=== PATIENT | female | born 1970 | race African-American/Black ===

== ENCOUNTER 2017-06-08 22:22 | Emergency (ER) | payer OTHER ==
[~2017-06-08] VITALS: Ht 162.6 cm; Wt 94.8 kg
[~2017-06-08 22:22] MED LIST: CLON0.1T PO; HYDR25TA4 PO; MONT10TA22 PO
[2017-06-08] MEDS ORDERED: KETOROLAC TROMETHAMINE INJ 30 MG/ML VIAL IV ONE (23:00)
--- NOTE | 2017-06-08 23:11 | NUR ---
pt c/o chest pain 8/10 for few days, radiating to the L jaw, SOB on exertion, SBP 200, sat 100% on MD NU at the bedside.
[2017-06-08] MEDS ORDERED: hydrALAZINE HCL IV 20 MG VIAL ONE (23:26)
[2017-06-08] MEDS ORDERED: KETOROLAC TROMETHAMINE INJ 30 MG/ML VIAL ONE (23:27)
[2017-06-08] MEDS ORDERED: hydrALAZINE HCL IV 20 MG VIAL IV ONE (23:30)
[2017-06-08 23:41] LABS: BASOPHILS # (AUTO) 0.1 /CMM (0.0-0.2); BASOPHILS % (AUTO) 0.7 % (0.0-2.0); EOSINOPHILS # (AUTO) 0.5 /CMM (0.0-0.7); HEMATOCRIT 34 % (33-45); HEMOGLOBIN 10.9 g/dL (11.5-14.8); LYMPHOCYTES % (AUTO) 37.9 % (20.0-44.0); MEAN CORPUSCULAR HEMOGLOBIN 23 PG (26.0-33.0); MEAN CORPUSCULAR HGB CONC 32 g/dl (31.0-36.0); MEAN CORPUSCULAR VOLUME 72 fL (82-100); MONOCYTES # (AUTO) 0.4 /CMM (0.1-1.30); MONOCYTES % (AUTO) 4.5 % (2.0-12.0); NEUTROPHILS % (AUTO) 50.9 % (43.0-81.0); PLATELET COUNT (AUTO) 372 /CMM (150-450); RDW COEFFICIENT OF VARIATION 32.2 (11.5-15.0); TROPONIN I < 0.017 ng/mL (0.00-0.056); WHITE BLOOD COUNT (AUTO) 7.9 K/uL (4.3-11.0)
[2017-06-08 23:54] LABS: CALCIUM, SERUM 9.6 mg/dL (8.5-10.1); CARBON DIOXIDE 28 mmol/L (21-32); CHLORIDE 100 mmol/L (98-107); CREATININE 0.8 mg/dL (0.6-1.3); GLUCOSE 119 mg/dL (74-106); POTASSIUM 3.4 mmol/L (3.5-5.1); SODIUM SERUM 136 mmol/L (136-145); UREA NITROGEN, BLOOD 12 mg/dL (7-18)
[2017-06-09 00:04] LABS: INR 0.93 (0.87-1.13); PROTHROMBIN TIME 9.7 SECS (9.5-12.7)
--- NOTE | 2017-06-09 00:06 | NUR ---
pt is resting in the bed, chest pain 2/10, sat well, SBP 135.
[2017-06-09 00:08] LABS: D-DIMER 3.68 mg/L(FEU (0.17-0.50)
[2017-06-09] MEDS ORDERED: IOHEXOL-350 100 ML VIAL IV ONE (00:35)
[2017-06-09] MEDS ORDERED: CT SWABBABLE VALVE TRANS SET 1 EA INFUS.SET MC ONE (00:35)
[2017-06-09] MEDS ORDERED: IV NS 0.9% 250 ML IV ONE (00:36)
[2017-06-09 01:54] VITALS: BP 141/76
--- NOTE | 2017-06-09 01:55 | NUR ---
Patient ambulatory w/ steady gait w/ resp even & unlabored, nad noted. IV removed. Catheter intact and site benign. Pressure and 4x4 applied to site. No bleeding noted.Patient discharged to home in stable condition. Written and verbal after care instructions given. Patient verbalizes understanding of instruction.
== END 2017-06-09 01:55 | disposition home or self-care (01) ==
LOC: ER 22:25
DX: R07.89 Other chest pain (principal); I10 Essential (primary) hypertension; Z88.0 Allergy status to penicillin; Z88.8 Allergy status to other drugs, medicaments and biological substances
CPT/HCPCS: 36415; 71010; 71275; 80048; 84484; 85025; 85378; 85730; 93005; 96374; 96375; 99285; A4606; J0360; J1885; J7050; Q9967; Z7610

== ENCOUNTER 2018-06-06 12:19 | Emergency (ER) | payer OTHER ==
[~2018-06-06] VITALS: Ht 162.6 cm; Wt 99.8 kg
[2018-06-06 13:00] LABS: BASOPHILS # (AUTO) 0.1 /CMM (0.0-0.2); BASOPHILS % (AUTO) 0.9 % (0.0-2.0); EOSINOPHILS % (AUTO) 11.5 % (0.0-6.0); HEMATOCRIT 23 % (33-45); HEMOGLOBIN 7.4 g/dL (11.5-14.8); LYMPHOCYTES # (AUTO) 1.5 /CMM (0.8-4.8); LYMPHOCYTES % (AUTO) 25.9 % (20.0-44.0); MEAN CORPUSCULAR HGB CONC 32 g/dl (31.0-36.0); MEAN CORPUSCULAR VOLUME 83 fL (82-100); MONOCYTES # (AUTO) 0.3 /CMM (0.1-1.30); NEUTROPHILS # (AUTO) 3.2 /CMM (1.8-8.9); NEUTROPHILS % (AUTO) 56.7 % (43.0-81.0); PLATELET COUNT (AUTO) 328 /CMM (150-450); RED BLOOD CELL COUNT(AUTO) 2.77 MIL/uL (4.0-5.2); WHITE BLOOD COUNT (AUTO) 5.7 K/uL (4.3-11.0)
--- NOTE | 2018-06-06 13:01 | NUR ---
PT BIB SELF, SENT BY OBGYN FOR LOW HGB 5.4, PT STATES THAT SHE HAD VAGINAL BLEED FROM APR 25 UNTIL JUN 04, 2018, DENIES VB X 2 DAYS. ALERT AND ORIENTED X 4, VERBALLY RESPONSIVE, AND ABLE TO MAKE NEEDS KNOWN. ON ROOM AIR, 02 SAT 97^%, BREATHING EVENLY, AND UNLABORED. DENIES ANY PAIN AT THIS TIME. KEPT COMFORTABLE. WILL CONTINUE TO MONITOR ACCORDINGLY.
[2018-06-06 13:14] LABS: CREATININE 0.8 mg/dL (0.6-1.3)
[2018-06-06 13:15] LABS: POTASSIUM 2.7 mmol/L (3.5-5.1)
[2018-06-06] MEDS ORDERED: POTASSIUM CHLORIDE 20 MEQ TAB.PRT.SR PO ONE ×2 (13:21→13:30)
[2018-06-06 13:24] LABS: ALBUMIN 3.6 g/dL (3.4-5.0); BILIRUBIN,TOTAL 0.2 mg/dL (0.2-1.0); TOTAL PROTEIN, SERUM 7.3 g/dL (6.4-8.2)
[2018-06-06 13:29] VITALS: BP 134/78
--- NOTE | 2018-06-06 13:30 | NUR ---
Patient discharged to home in stable condition. Written and verbal after care instructions given. Patient verbalizes understanding of instruction.
== END 2018-06-06 13:29 | disposition home or self-care (01) ==
LOC: ER 12:24
DX: D64.9 Anemia, unspecified (principal); N92.0 Excessive and frequent menstruation with regular cycle; D25.9 Leiomyoma of uterus, unspecified; E87.6 Hypokalemia; I10 Essential (primary) hypertension; Z98.890 Other specified postprocedural states; Z88.0 Allergy status to penicillin; Z88.8 Allergy status to other drugs, medicaments and biological substances
CPT/HCPCS: 36415; 80048-TC; 80076-TC; 85025-TC; 85730-TC; 86850-TC; A4606; Z7610

== ENCOUNTER 2018-08-26 06:39 | Emergency (ER) | payer OTHER ==
[~2018-08-26] VITALS: Ht 162.6 cm; Wt 96.2 kg
--- NOTE | 2018-08-26 06:57 | NUR ---
PT BIBS. C/O "WAS PULLING STUFF OUT OF A BIN, SHOULDER STARTED HURTING AND ITS WORSE IN THE MORNINGS" -SOB. -N/V -ACUTE DISTRESS. AOX4. AMBULATORY W.STEADY GAIT.
[2018-08-26] MEDS ORDERED: DIAZEPAM 10 MG TABLET PO ONE (07:00)
[2018-08-26] MEDS ORDERED: IBUPROFEN 400 MG TABLET PO ONE (07:00)
[2018-08-26] MEDS ORDERED: DIAZEPAM 5 MG TABLET ONE (07:06)
[2018-08-26] MEDS ORDERED: IBUPROFEN 400 MG TABLET ONE ×2 (07:06→07:11)
[2018-08-26 07:22] LABS: BASOPHILS % (AUTO) 0.5 % (0.0-2.0); EOSINOPHILS % (AUTO) 6.2 % (0.0-6.0); HEMATOCRIT 36 % (33-45); HEMOGLOBIN 11.6 g/dL (11.5-14.8); LYMPHOCYTES # (AUTO) 2.3 /CMM (0.8-4.8); LYMPHOCYTES % (AUTO) 34.2 % (20.0-44.0); MEAN CORPUSCULAR HGB CONC 32 g/dl (31.0-36.0); MEAN CORPUSCULAR VOLUME 77 fL (82-100); MONOCYTES # (AUTO) 0.4 /CMM (0.1-1.30); MONOCYTES % (AUTO) 6.1 % (2.0-12.0); NEUTROPHILS # (AUTO) 3.6 /CMM (1.8-8.9); PLATELET COUNT (AUTO) 250 /CMM (150-450); RED BLOOD CELL COUNT(AUTO) 4.71 MIL/uL (4.0-5.2); WHITE BLOOD COUNT (AUTO) 6.7 K/uL (4.3-11.0)
[2018-08-26 07:32] LABS: CALCIUM, SERUM 9.4 mg/dL (8.5-10.1); CREATININE 0.7 mg/dL (0.6-1.3); POTASSIUM 3.4 mmol/L (3.5-5.1)
--- NOTE | 2018-08-26 07:35 | NUR ---
ASSESSED PT ON BED, AAOX4, NOT IN RESPIRATORY DISTRESS, KEPT RESTED AND COMFORTABLE, WILL CONTINUE TO MONITOR.
--- NOTE | 2018-08-26 07:51 | NUR ---
SUPERVISOR STRIPPING AT BEDSIDE FOR XRAY.
[2018-08-26] MEDS ORDERED: POTASSIUM CHLORIDE 20 MEQ TAB.PRT.SR PO ONE ×2 (07:59→08:00)
--- NOTE | 2018-08-26 08:15 | NUR ---
SHOULDER IMMOBILIZER APPLIED BY SHORTHAND TEACHER.
[2018-08-26 08:27] VITALS: BP 155/90
--- NOTE | 2018-08-26 08:27 | NUR ---
Patient discharged to home in stable condition. Written and verbal after care instructions given. Patient verbalizes understanding of instruction.
== END 2018-08-26 08:29 | disposition home or self-care (01) ==
LOC: ER 06:47
DX: M25.511 Pain in right shoulder (principal); M62.838 Other muscle spasm; I10 Essential (primary) hypertension; Z98.890 Other specified postprocedural states; Z88.8 Allergy status to other drugs, medicaments and biological substances; Z88.0 Allergy status to penicillin; Z79.899 Other long term (current) drug therapy
CPT/HCPCS: 36415; 73030; 80048; 84484; 85025; 93005; 99284; A4606

== ENCOUNTER 2018-08-27 22:57 | Emergency (ER) | payer OTHER ==
[~2018-08-27] VITALS: Ht 162.6 cm; Wt 96.2 kg
[2018-08-27 23:11] VITALS: BP 162/91
== END 2018-08-27 23:53 | disposition home or self-care (01) ==
LOC: ER 22:59
DX: M54.10 Radiculopathy, site unspecified (principal); M79.641 Pain in right hand; I10 Essential (primary) hypertension; Z98.890 Other specified postprocedural states; Z88.8 Allergy status to other drugs, medicaments and biological substances; Z88.0 Allergy status to penicillin; Z79.899 Other long term (current) drug therapy
CPT/HCPCS: 99283; A4606